=== PATIENT | male | born 1930 | race Caucasian/White ===

== ENCOUNTER 2016-10-10 17:24 | Inpatient (IN) | payer MEDICARE, MEDICAID ==
[~2016-10-10] VITALS: Ht 170.2 cm; Wt 77.1 kg
[2016-10-10 17:28] VITALS: BP 150/65
[2016-10-10 17:47] LABS: BASOPHILS % (AUTO) 0.4 % (0.0-2.0); EOSINOPHILS % (AUTO) 2.7 % (0.0-3.0); LYMPHOCYTES % (AUTO) 32.7 % (20.0-45.0); MEAN CORPUSCULAR HEMOGLOBIN 30.1 PG (27.0-31.0); MEAN CORPUSCULAR HGB CONC 33.9 G/DL (32.0-36.0); MEAN CORPUSCULAR VOLUME 89 FL (80-99); MONOCYTES % (AUTO) 10.3 % (1.0-10.0); NEUTROPHILS % (AUTO) 53.9 % (45.0-75.0); PLATELET COUNT 141 K/UL (150-450); RED BLOOD COUNT 3.84 M/UL (4.70-6.10); WHITE BLOOD COUNT 6.3 K/UL (4.8-10.8)
[2016-10-10 17:57] LABS: ALANINE AMINOTRANSFERASE 5 U/L (3-41); ALBUMIN/GLOBULIN RATIO 2.1 (1.0-2.7); ANION GAP 13 (5-15); ASPARTATE AMINO TRANSFERASE 15 U/L (5-40); CALCIUM 9.4 mg/dL (8.6-10.2); CARBON DIOXIDE 26 mEQ/L (20-30); CHLORIDE 96 mEQ/L (98-107); CREATININE 0.9 mg/dL (0.7-1.2); HEMOLYSIS 8; POTASSIUM 4.4 mEQ/L (3.4-4.9); SODIUM 135 mEQ/L (135-145)
[2016-10-10 17:59] LABS: TROPONIN I < 0.30 ng/mL (<=0.30)
[2016-10-10 18:08] LABS: CKMB 1.9 ng/mL (< 6.7)
[2016-10-10 18:28] LABS: INR 1.1 (0.9-1.1); PROTHROMBIN TIME 11.7 SEC (9.30-11.50)
[2016-10-10] MEDS ORDERED: TAMSULOSIN HCL0.4 MG ORAL (18:59)
[2016-10-10] MEDS ORDERED: BRIMONIDINE TART5 ML BOTH EYES (18:59)
[2016-10-10] MEDS ORDERED: DOCUSATE SODIU100 MG ORAL (18:59)
[2016-10-10] MEDS ORDERED: ASPIRIN81 MG ORAL (18:59)
[2016-10-10] MEDS ORDERED: CRESTOR20 MG ORAL (19:05)
[2016-10-10] MEDS ORDERED: SINEMET 25-1001 EAC1 ORAL (19:05)
[2016-10-10] MEDS ORDERED: HYDRALAZINE HC100 MG ORAL (19:05)
[2016-10-10] MEDS ORDERED: PROTONIX40 MG ORAL (19:05)
[2016-10-10] MEDS ORDERED: ARICEPT5 MG ORAL (19:05)
[2016-10-10] MEDS ORDERED: BRILINTA90 MG PO (19:05)
[2016-10-10] MEDS ORDERED: TRAVATAN Z5 ML OP (19:05)
[2016-10-10 19:29] VITALS: BP 164/70
[2016-10-10 20:40] VITALS: BP 140/72
[2016-10-10] MEDS ORDERED: Morphine Sulfate 2mg/ml Inj IVP PRN (21:45)
[2016-10-10] MEDS ORDERED: Diltiazem 25mg/5ml IV PRN (21:45)
[2016-10-10] MEDS ORDERED: DuoNeb 0.5-3(2.5)mg/3ml neb HHN PRN (21:45)
[2016-10-10] MEDS ORDERED: Miralax 17gm pkt ORAL PRN (21:45)
[2016-10-10] MEDS ORDERED: Ketorolac 30mg Inj IV PRN (21:45)
[2016-10-10] MEDS ORDERED: Nitroglycerin Subl 0.4mg tab (Bottle Of 25) SL PRN (21:45)
--- NOTE | 2016-10-10 22:58 | Emergency Room Report ---
History of Present Illness General Chief Complaint: Chest Pain Source: Patient, EMS Present Illness HPI Patient is a 86-year-old male presented after having increased chest pain from prison. The patient had prior history of cardiac stent. The patient had been sent in from [facility]. He had not been vomiting. The patient had been given aspirin as well as nitroglycerin in the field without changes chest pain. The pain was described as sharp in nature and did not radiate . Allergies: Coded Allergies: No Known Allergies (Verified , 11/07/06) Patient History Past Medical History: see triage record Reviewed Nursing Documentation: PMH: Agreed, PSxH: Agreed Nursing Documentation-PMH Hx Hypertension: Yes Review of Systems All Other Systems: negative except mentioned in HPI Physical Exam Vital Signs Date Time Temp Pulse Resp B/P Pulse Ox O2 Delivery O2 Flow Rate FiO2 10/10/16 17:08 98.2 64 13 119/64 98 Room Air Sp02 EP Interpretation: reviewed, normal General Appearance: normal inspection, well appearing, no apparent distress, alert, GCS 15, non-toxic Head: atraumatic ENT: normal ENT inspection, hearing grossly normal, normal voice Neck: normal inspection, full range of motion, supple, no bony tend Respiratory: normal inspection, lungs clear, normal breath sounds, no respiratory distress, no retraction, no wheezing Cardiovascular #1: regular rate, rhythm, no edema Gastrointestinal: normal inspection, normal bowel sounds, non tender, soft, no guarding, no hernia Genitourinary: no CVA tenderness Musculoskeletal: normal inspection, back normal, normal range of motion Neurologic: normal inspection, alert, oriented x3, responsive, adobe flex developer 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 tested, speech normal Psychiatric: normal inspection, judgement/insight normal, mood/affect normal Skin: normal inspection, normal color, no rash Medical Decision Making Diagnostic Impression: Primary Impression: Chest pain Additional Impression: ACS (acute coronary syndrome) ER Course Patient presented for chest pain.Differential diagnosis included but was not limited to acute coronary syndrome, pulmonary embolism, pneumonia, aortic dissection, shingles, pneumothorax, aortic dissection, esophageal rupture, pericarditis. Because of complexity of patient's case laboratory testing and imaging studies were ordered. EKG interpreted by me showed normal sinus rhythm with a rate of [address] changes. There were some lateral T-wave inversion V5 V6. The patient' s EKG changes are concerning for cardiac ischemia. Patient was admitted for further workup given the patient's prior cardiac history Dr. deng was contacted for inpatient management Labs Test 10/10/16 17:25 10/10/16 17:44 White Blood Count 6.3 K/UL (4.8-10.8) Red Blood Count 3.84 M/UL (4.70-6.10) Hemoglobin 11.6 G/DL (14.2-18.0) Hematocrit 34.2 % (42.0-52.0) Mean Corpuscular Volume 89 FL (80-99) Mean Corpuscular Hemoglobin 30.1 PG (27.0-31.0) Mean Corpuscular Hemoglobin Concent 33.9 G/DL (32.0-36.0) Red Cell Distribution Width 12.0 % (11.6-14.8) Platelet Count 141 K/UL (150-450) Mean Platelet Volume 9.0 FL (6.5-10.1) Neutrophils (%) (Auto) 53.9 % (45.0-75.0) Lymphocytes (%) (Auto) 32.7 % (20.0-45.0) Monocytes (%) (Auto) 10.3 % (1.0-10.0) Eosinophils (%) (Auto) 2.7 % (0.0-3.0) Basophils (%) (Auto) 0.4 % (0.0-2.0) Prothrombin Time 11.7 SEC (9.30-11.50) Prothromb Time International Ratio 1.1 (0.9-1.1) Activated Partial Thromboplast Time 27 SEC (23-33) Sodium Level 135 mEQ/L (135-145) Potassium Level 4.4 mEQ/L (3.4-4.9) Chloride Level 96 mEQ/L (98-107) Carbon Dioxide Level 26 mEQ/L (20-30) Anion Gap 13 (5-15) Blood Urea Nitrogen 19 mg/dL (7-23) Creatinine 0.9 mg/dL (0.7-1.2) Estimat Glomerular Filtration Rate mL/min (>60) Glucose Level 155 mg/dL (74-106) Calcium Level 9.4 mg/dL (8.6-10.2) Total Bilirubin 0.4 mg/dL (0.0-1.2) Aspartate Amino Transf (AST/SGOT) 15 U/L (5-40) Alanine Aminotransferase (ALT/SGPT) 5 U/L (3-41) Alkaline Phosphatase 72 U/L (40-129) Total Creatine Kinase 69 U/L (38-174) Creatine Kinase MB 1.9 ng/mL (< 6.7) Creatine Kinase MB Relative Index 2.7 Troponin I < 0.30 ng/mL (<=0.30) Pro-B-Type Natriuretic Peptide 479 pg/mL (0-450) Total Protein 6.0 g/dL (6.6-8.7) Albumin 4.1 g/dL (3.5-5.2) Globulin 1.9 g/dL Albumin/Globulin Ratio 2.1 (1.0-2.7) Lactic Acid Level 1.00 mmol/L (0.66-2.22) EKG Diagnostic Results Rate: normal Rhythm: NSR ST Segments: no acute changes ASA given to the pt in ED: No Rhythm Strip Diag. Results EP Interpretation: yes Rhythm: NSR, no PVC's, no ectopy Chest X-Ray Diagnostic Results EP Interpretation: Yes Findings: no consolidation, no effusion, no pneumothorax, no acute cardiopulmonary disease Number of Views: 1 Last Vital Signs Date Time Temp Pulse Resp B/P Pulse Ox O2 Delivery O2 Flow Rate FiO2 10/10/16 19:30 98.2 65 12 164/70 100 Room Air Status: unchanged Disposition: ADMITTED INPATIENT Condition: Serious Referrals: NON PHYSICIAN (PCP) James Rubin Oct 10, 2016 22:58
[2016-10-11] VITALS: BP 153/60
[2016-10-11 00:08] LABS: TROPONIN I < 0.30 ng/mL (<=0.30)
[2016-10-11 04:00] VITALS: BP 155/70
[2016-10-11 07:31] LABS: BASOPHILS % (AUTO) 0.8 % (0.0-2.0); LYMPHOCYTES % (AUTO) 27.9 % (20.0-45.0); MEAN CORPUSCULAR HEMOGLOBIN 31.4 PG (27.0-31.0); MEAN CORPUSCULAR HGB CONC 35.6 G/DL (32.0-36.0); MEAN CORPUSCULAR VOLUME 88 FL (80-99); MEAN PLATELET VOLUME 8.2 FL (6.5-10.1); MONOCYTES % (AUTO) 9.1 % (1.0-10.0); NEUTROPHILS % (AUTO) 59.1 % (45.0-75.0); PLATELET COUNT 127 K/UL (150-450); RED BLOOD COUNT 4.01 M/UL (4.70-6.10); RED CELL DISTRIBUTION WIDTH 11.5 % (11.6-14.8); WHITE BLOOD COUNT 5.5 K/UL (4.8-10.8)
[2016-10-11 07:51] LABS: TROPONIN I < 0.30 ng/mL (<=0.30)
[2016-10-11 07:58] LABS: THYROID STIMULATING HORMONE 0.762 uIU/mL (0.300-4.500)
[2016-10-11 08:01] LABS: INR 1.1 (0.9-1.1); PROTHROMBIN TIME 11.6 SEC (9.30-11.50)
[2016-10-11 08:02] LABS: CHOLESTEROL 110 mg/dL (< 200); CHOLESTEROL/HDL RATIO 1.7 (3.3-4.4); CRP QUANT < 0.3 mg/dL (< 0.5); HEMOLYSIS 4; LDL CHOLESTEROL (CALC.) 35 mg/dL (60-99)
[2016-10-11] MEDS: Heparin 5000 units/ml inj SUBQ SCH ×2 (09:00→21:00)
[2016-10-11] MEDS: Tamsulosin 0.4mg cap ORAL SCH (09:21)
[2016-10-11] MEDS: Sinemet 25/100 tab ORAL SCH ×3 (09:21→18:39)
[2016-10-11] MEDS: Donepezil 5mg Tab ORAL SCH (09:28)
[2016-10-11] MEDS: Aspirin Baby 81mg ORAL SCH (09:29)
[2016-10-11 12:02] LABS: TROPONIN I < 0.30 ng/mL (<=0.30)
[2016-10-11 12:55] VITALS: BP 130/87
--- NOTE | 2016-10-11 13:09 | History and Physical ---
History of Present Illness General Date patient seen: Oct 11, 2016 Reason for Hospitalization: Chest Pain Present Illness HPI 86-year-old male with hx of Parkinson, CAD, pace maker, skilled nursing resident presented after having increased chest pain. The patient had prior history of cardiac stent. The patient had been given aspirin as well as nitroglycerin in the field without changes chest pain. The pain was described as sharp in nature and did not radiate . He is admitted telemetry to rule out acute ID among other. Allergies: Coded Allergies: No Known Allergies (Verified , 11/07/06) Medication History Scheduled Aspirin* (Aspirin*), 81 MG ORAL DAILY, (Reported) Brimonidine Tartrate* (Alphagan*), 1 DROP BOTH EYES TID, (Reported) Carbidopa/Levodopa 25-100 Mg* (Sinemet 25-100 Mg Tablet*), 1 TAB ORAL THREE TIMES A DAY, (Reported) Docusate Sodium* (Docusate Sodium*), 100 MG ORAL TWICE A DAY, (Reported) Donepezil Hcl* (Aricept*), 5 MG ORAL DAILY, (Reported) Hydralazine Hcl* (Hydralazine Hcl*), 100 MG ORAL BID, (Reported) Pantoprazole* (Protonix*), 40 MG ORAL DAILY, (Reported) Rosuvastatin Calcium* (Crestor*), 20 MG ORAL DAILY, (Reported) Ticagrelor* (Brilinta*), 90 MG PO BID, (Reported) Miscellaneous Medications Tamsulosin Hcl (Tamsulosin Hcl*), 0.4 MG ORAL, (Reported) Travoprost (Travatan Z), 5 ML OP, (Reported) Patient History Healthcare decision maker Resuscitation status Full Code Advanced Directive on File Yes Past Medical/Surgical History Past Medical/Surgical History: (1) Parkinson disease (2) Pacemaker (3) Hx of CABG Social History Social History: (1) long term resident Review of Systems All Other Systems: negative except mentioned in HPI Physical Exam Lines, tubes and drains: peripheral, trach HEENT: atraumatic Neck: non-tender, normal alignment Respiratory/Chest: chest wall non-tender, lungs clear Cardiovascular/Chest: normal peripheral pulses, normal rate Abdomen: normal bowel sounds, non tender Genitourinary/Rectal: normal genital exam Last 24 Hour Vital Signs Date Time Temp Pulse Resp B/P Pulse Ox O2 Delivery O2 Flow Rate FiO2 10/11/16 08:41 67 18 Room Air 10/11/16 08:00 60 10/11/16 04:00 60 10/11/16 04:00 97.5 53 16 155/70 98 Room Air 10/11/16 00:00 96.8 58 16 153/60 98 Room Air 10/11/16 00:00 58 10/10/16 21:55 84 10/10/16 20:40 97.3 57 14 140/72 98 Room Air 10/10/16 19:30 98.2 65 12 164/70 100 Room Air 10/10/16 19:29 98.2 65 13 164/70 100 Room Air 10/10/16 17:30 65 11 Room Air 10/10/16 17:28 98.2 65 11 150/65 100 Room Air 10/10/16 17:08 98.2 64 13 119/64 98 Room Air Intake and Output 10/10/16 10/11/16 19:00 07:00 Intake Total 0 ml Output Total 800 ml Balance -800 ml Intake Oral 0 ml Output Urine Total 800 ml # Voids 4 Laboratory Tests Test 10/10/16 17:25 10/10/16 17:44 10/10/16 23:40 10/11/16 05:37 White Blood Count 6.3 K/UL (4.8-10.8) 5.5 K/UL (4.8-10.8) Red Blood Count 3.84 M/UL (4.70-6.10) L 4.01 M/UL (4.70-6.10) L Hemoglobin 11.6 G/DL (14.2-18.0) L 12.6 G/DL (14.2-18.0) L Hematocrit 34.2 % (42.0-52.0) L 35.3 % (42.0-52.0) L Mean Corpuscular Volume 89 FL (80-99) 88 FL (80-99) Mean Corpuscular Hemoglobin 30.1 PG (27.0-31.0) 31.4 PG (27.0-31.0) H Mean Corpuscular Hemoglobin Concent 33.9 G/DL (32.0-36.0) 35.6 G/DL (32.0-36.0) Red Cell Distribution Width 12.0 % (11.6-14.8) 11.5 % (11.6-14.8) L Platelet Count 141 K/UL (150-450) L 127 K/UL (150-450) L Mean Platelet Volume 9.0 FL (6.5-10.1) 8.2 FL (6.5-10.1) Neutrophils (%) (Auto) 53.9 % (45.0-75.0) 59.1 % (45.0-75.0) Lymphocytes (%) (Auto) 32.7 % (20.0-45.0) 27.9 % (20.0-45.0) Monocytes (%) (Auto) 10.3 % (1.0-10.0) H 9.1 % (1.0-10.0) Eosinophils (%) (Auto) 2.7 % (0.0-3.0) 3.0 % (0.0-3.0) Basophils (%) (Auto) 0.4 % (0.0-2.0) 0.8 % (0.0-2.0) Prothrombin Time 11.7 SEC (9.30-11.50) H 11.6 SEC (9.30-11.50) H Prothromb Time International Ratio 1.1 (0.9-1.1) 1.1 (0.9-1.1) Activated Partial Thromboplast Time 27 SEC (23-33) 27 SEC (23-33) Sodium Level 135 mEQ/L (135-145) Potassium Level 4.4 mEQ/L (3.4-4.9) Chloride Level 96 mEQ/L (98-107) L Carbon Dioxide Level 26 mEQ/L (20-30) Anion Gap 13 (5-15) Blood Urea Nitrogen 19 mg/dL (7-23) Creatinine 0.9 mg/dL (0.7-1.2) Estimat Glomerular Filtration Rate mL/min (>60) Glucose Level 155 mg/dL (74-106) H Calcium Level 9.4 mg/dL (8.6-10.2) Total Bilirubin 0.4 mg/dL (0.0-1.2) Aspartate Amino Transf (AST/SGOT) 15 U/L (5-40) Alanine Aminotransferase (ALT/SGPT) 5 U/L (3-41) Alkaline Phosphatase 72 U/L (40-129) Total Creatine Kinase 69 U/L (38-174) Creatine Kinase MB 1.9 ng/mL (< 6.7) Creatine Kinase MB Relative Index 2.7 Troponin I < 0.30 ng/mL (<=0.30) < 0.30 ng/mL (<=0.30) < 0.30 ng/mL (<=0.30) Pro-B-Type Natriuretic Peptide 479 pg/mL (0-450) H Total Protein 6.0 g/dL (6.6-8.7) L Albumin 4.1 g/dL (3.5-5.2) Globulin 1.9 g/dL Albumin/Globulin Ratio 2.1 (1.0-2.7) Lactic Acid Level 1.00 mmol/L (0.66-2.22) C-Reactive Protein, Quantitative < 0.3 mg/dL (< 0.5) Triglycerides Level 62 mg/dL (< 150) Cholesterol Level 110 mg/dL (< 200) LDL Cholesterol 35 mg/dL (60-99) L HDL Cholesterol 63 mg/dL (> 60) H Cholesterol/HDL Ratio 1.7 (3.3-4.4) L Thyroid Stimulating Hormone (TSH) 0.762 uIU/mL (0.300-4.500) Test 10/11/16 11:25 Troponin I < 0.30 ng/mL (<=0.30) Height (Feet): 5 Height (Inches): 7.00 Weight (Pounds): 170 Medications Current Medications Medications (Trade) Dose Ordered Sig/Angelito Route PRN Reason Start Time Stop Time Status Last Admin Dose Admin Acetaminophen (Tylenol) 650 mg Q4H PRN ORAL FEVER 10/10/16 21:45 11/09/16 21:44 Albuterol/ Ipratropium (DuoNeb 0.5-3(2.5)mg/3ml) 3 ml Q4H PRN HHN Shortness of Breath 10/10/16 21:45 10/15/16 21:44 Aspirin (ASA) 162 mg DAILY ORAL 10/11/16 09:00 11/10/16 08:59 10/11/16 09:29 Carbidopa/Levodopa (Sinemet 25/100) 1 ea THREE TIMES A DAY ORAL 10/11/16 09:00 11/10/16 08:59 10/11/16 09:28 Diltiazem HCl (Cardizem) 10 mg EVERY HOUR PRN IV heart rate more than 120, 10/10/16 21:45 11/09/16 21:44 Donepezil HCl (Aricept) 5 mg DAILY ORAL 10/11/16 09:00 11/10/16 08:59 10/11/16 09:28 Enalaprilat (Vasotec) 2.5 mg Q6H PRN IV sbp more than 160 10/10/16 21:45 11/09/16 21:44 Heparin Sodium (Porcine) (Heparin 5000 units/ml) 5,000 units EVERY 12 HOURS SUBQ 10/11/16 09:00 11/10/16 08:59 Ketorolac Tromethamine (Toradol 30mg) 30 mg Q6HR PRN IV moderate pain ( 4-6) 10/10/16 21:45 10/15/16 21:44 UNV Morphine Sulfate (Morphine Sulfate) 2 mg Q4H PRN IVP severe Pain (Pain Scale 7-10) 10/10/16 21:45 10/17/16 21:44 Nitroglycerin (Ntg) 0.4 mg Every 5 Minutes PRN SL Prn Chest Pain 10/10/16 21:45 11/09/16 21:44 Ondansetron HCl (Zofran) 4 mg Q6H PRN IVP Nausea & Vomiting 10/10/16 21:45 11/09/16 21:44 Pantoprazole (Protonix) 40 mg DAILY ORAL 10/11/16 09:00 11/10/16 08:59 10/11/16 09:28 Polyethylene Glycol (Miralax) 17 gm DAILYPRN PRN ORAL Constipation 10/10/16 21:45 11/09/16 21:44 Tamsulosin HCl (Flomax) 0.4 mg DAILY ORAL 10/11/16 09:00 11/10/16 08:59 Temazepam (Restoril) 15 mg HSPRN PRN ORAL Insomnia 10/10/16 21:45 10/17/16 21:44 Assessment/Plan Problem List: (1) ACS (acute coronary syndrome) ICD Codes: I24.9 - Acute ischemic heart disease, unspecified SNOMED: 602694790 (2) Costochondritis ICD Codes: M94.0 - Chondrocostal junction syndrome [Tietze] SNOMED: 84320713 (3) GERD (gastroesophageal reflux disease) ICD Codes: K21.9 - Gastro-esophageal reflux disease without esophagitis SNOMED: 041263695 (4) Pacemaker ICD Codes: Z95.0 - Presence of cardiac pacemaker SNOMED: 142642421, 353637076 (5) Parkinson disease ICD Codes: G20 - Parkinson's disease SNOMED: 18700548 (6) Hx of CABG ICD Codes: Z95.1 - Presence of aortocoronary bypass graft SNOMED: 938543276, 129058049 (7) long term resident ICD Codes: Z59.3 - Problems related to living in residential institution SNOMED: 162288151 (8) Chest pain ICD Codes: R07.9 - Chest pain, unspecified SNOMED: 60904080 Assessment/Plan serial ekg, troponin, echo cardiology to see dvt prophylaxis symptomatic treatment WILFRED RAY Oct 11, 2016 13:09
--- NOTE | 2016-10-11 15:40 | Cardiology Progress Note ---
Assessment/Plan Assessment/Plan chest pain cad s/p cabg adn pci to lm with cath 04/2016 neg mds anemia all trop neg desptie 1 hour of cp ekg not changed since multipl devonte r ekg at [facility] as[facility] / bril[place] dc to dc will not pursuit further [id number] Objective Last 24 Hour Vital Signs Date Time Temp Pulse Resp B/P Pulse Ox O2 Delivery O2 Flow Rate FiO2 10/11/16 12:55 98.2 77 18 130/87 97 Room Air 10/11/16 08:41 67 18 Room Air 10/11/16 08:00 60 10/11/16 04:00 60 10/11/16 04:00 97.5 53 16 155/70 98 Room Air 10/11/16 00:00 96.8 58 16 153/60 98 Room Air 10/11/16 00:00 58 10/10/16 21:55 84 10/10/16 20:40 97.3 57 14 140/72 98 Room Air 10/10/16 19:30 98.2 65 12 164/70 100 Room Air 10/10/16 19:29 98.2 65 13 164/70 100 Room Air 10/10/16 17:30 65 11 Room Air 10/10/16 17:28 98.2 65 11 150/65 100 Room Air 10/10/16 17:08 98.2 64 13 119/64 98 Room Air Intake and Output 10/10/16 10/11/16 19:00 07:00 Intake Total 0 ml Output Total 800 ml Balance -800 ml Intake Oral 0 ml Output Urine Total 800 ml # Voids 4 Laboratory Tests Test 10/10/16 17:25 10/10/16 17:44 10/10/16 23:40 10/11/16 05:37 White Blood Count 6.3 K/UL (4.8-10.8) 5.5 K/UL (4.8-10.8) Red Blood Count 3.84 M/UL (4.70-6.10) L 4.01 M/UL (4.70-6.10) L Hemoglobin 11.6 G/DL (14.2-18.0) L 12.6 G/DL (14.2-18.0) L Hematocrit 34.2 % (42.0-52.0) L 35.3 % (42.0-52.0) L Mean Corpuscular Volume 89 FL (80-99) 88 FL (80-99) Mean Corpuscular Hemoglobin 30.1 PG (27.0-31.0) 31.4 PG (27.0-31.0) H Mean Corpuscular Hemoglobin Concent 33.9 G/DL (32.0-36.0) 35.6 G/DL (32.0-36.0) Red Cell Distribution Width 12.0 % (11.6-14.8) 11.5 % (11.6-14.8) L Platelet Count 141 K/UL (150-450) L 127 K/UL (150-450) L Mean Platelet Volume 9.0 FL (6.5-10.1) 8.2 FL (6.5-10.1) Neutrophils (%) (Auto) 53.9 % (45.0-75.0) 59.1 % (45.0-75.0) Lymphocytes (%) (Auto) 32.7 % (20.0-45.0) 27.9 % (20.0-45.0) Monocytes (%) (Auto) 10.3 % (1.0-10.0) H 9.1 % (1.0-10.0) Eosinophils (%) (Auto) 2.7 % (0.0-3.0) 3.0 % (0.0-3.0) Basophils (%) (Auto) 0.4 % (0.0-2.0) 0.8 % (0.0-2.0) Prothrombin Time 11.7 SEC (9.30-11.50) H 11.6 SEC (9.30-11.50) H Prothromb Time International Ratio 1.1 (0.9-1.1) 1.1 (0.9-1.1) Activated Partial Thromboplast Time 27 SEC (23-33) 27 SEC (23-33) Sodium Level 135 mEQ/L (135-145) Potassium Level 4.4 mEQ/L (3.4-4.9) Chloride Level 96 mEQ/L (98-107) L Carbon Dioxide Level 26 mEQ/L (20-30) Anion Gap 13 (5-15) Blood Urea Nitrogen 19 mg/dL (7-23) Creatinine 0.9 mg/dL (0.7-1.2) Estimat Glomerular Filtration Rate mL/min (>60) Glucose Level 155 mg/dL (74-106) H Calcium Level 9.4 mg/dL (8.6-10.2) Total Bilirubin 0.4 mg/dL (0.0-1.2) Aspartate Amino Transf (AST/SGOT) 15 U/L (5-40) Alanine Aminotransferase (ALT/SGPT) 5 U/L (3-41) Alkaline Phosphatase 72 U/L (40-129) Total Creatine Kinase 69 U/L (38-174) Creatine Kinase MB 1.9 ng/mL (< 6.7) Creatine Kinase MB Relative Index 2.7 Troponin I < 0.30 ng/mL (<=0.30) < 0.30 ng/mL (<=0.30) < 0.30 ng/mL (<=0.30) Pro-B-Type Natriuretic Peptide 479 pg/mL (0-450) H Total Protein 6.0 g/dL (6.6-8.7) L Albumin 4.1 g/dL (3.5-5.2) Globulin 1.9 g/dL Albumin/Globulin Ratio 2.1 (1.0-2.7) Lactic Acid Level 1.00 mmol/L (0.66-2.22) C-Reactive Protein, Quantitative < 0.3 mg/dL (< 0.5) Triglycerides Level 62 mg/dL (< 150) Cholesterol Level 110 mg/dL (< 200) LDL Cholesterol 35 mg/dL (60-99) L HDL Cholesterol 63 mg/dL (> 60) H Cholesterol/HDL Ratio 1.7 (3.3-4.4) L Thyroid Stimulating Hormone (TSH) 0.762 uIU/mL (0.300-4.500) Test 10/11/16 11:25 Troponin I < 0.30 ng/mL (<=0.30) ALEXANDER SPENCE Oct 11, 2016 15:40
[2016-10-11 16:00] VITALS: BP 172/68
[2016-10-11 20:00] VITALS: BP 168/65
[2016-10-12] VITALS: BP 176/73
[2016-10-12] MEDS: Enalaprilat 2.5mg/2ml Inj IV PRN ×2 (00:18→17:16)
[2016-10-12 04:00] VITALS: BP 160/70
--- NOTE | 2016-10-12 04:28 | Consultation ---
DATE OF CONSULTATION: 10/11/2016 CARDIOLOGY CONSULTATION REFERRING PHYSICIAN: Brooke Douglas M.D. REASON FOR REFERRAL: Chest pain. HISTORY OF PRESENT ILLNESS: The patient is an elderly male whose information is obtained from the nurse and discussion with the patient as well as review of the [facility] records from his recent hospitalizations and admissions for past 6 or 7 months. The patient tells me that he came in to the hospital emergency room because of pain in the left side of his chest approximately one hour duration. He has had similar episodes a few months ago and he was admitted to [facility] and he had a workup including a cath that did not show any significant coronary disease causing chest pain and he was subsequently discharged to convalescent facility. He has had apparently a recent ER visit because of the pain that he experienced and was subsequently evaluated in to the emergency room and sent back to the convalescent facility. He is not able to identify what type of pain that he has experienced, only that it lasted approximately one hour. There was apparently no radiation of the pain and was similar to what he had six months ago. He does not have any PND or orthopnea. He uses 3 or 4 pillows just for comfort. He does not have any heart pounding or palpitations except for rare occasions and no dizziness or lightheadedness on standing. He is mostly bedbound. PAST MEDICAL HISTORY: Positive for history of recent fall mechanical in 09/2016. He has had a CT scan of the head and C-spine and it was apparently negative. 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 Davidson indicating a dominant left system patent stent, left main to LAD, no in-stent stenosis, GENIE 3 flow LAD, patent stents, circumflex artery, patent graft to OM and it was their opinion that there was no coronary disease to explain the patient's atypical chest pain and alternate causes of the patient's atypical chest pain was to be sought. He also has a history of sick sinus syndrome status post permanent pacemaker implantation, thoracic aortic calcification, hypertension, dementia with behavioral manifestations and Parkinson disease, bipolar disorder, right parieto-occipital intraparenchymal hemorrhage with intraventricular extension, small subarachnoid hemorrhage, previously benign prostatic hypertrophy, mild dysplastic syndrome, chronic anemia, gastroesophageal reflux disease, glaucoma, seborrheic dermatitis, and constipation chronically. BOWEN to LAD showed no flow to the wales LAD system, saphenous vein graft to obtuse marginal was free of significant stenosis, good anterograde and retrograde flow, and saphenous vein graft to RCA was basically all normal. ALLERGIES: He denies any allergies to medications. SOCIAL HISTORY: He used to smoke remotely many years ago, none recently. No alcoholic beverages. He lives at convalescent facility. REVIEW OF SYSTEMS: Gastrointestinal: Positive constipation. Genitourinary: Negative. Pulmonary: Negative. Constitutional: Negative. Cardiac: As mentioned in the history of present illness. Neurologic: Negative. PHYSICAL EXAMINATION: GENERAL: Shows him to be an elderly gentleman, in no apparent respiratory distress. HEENT: Unremarkable. NECK: Supple. No jugular venous distention. No abdominojugular reflux noted. LUNGS: Appear to be clear to auscultation and percussion. CARDIAC: S1 is normal. S2 is normal. Regular rate and rhythm. No heaves, thrills, or gallops noted. ABDOMEN: Soft and nontender. Positive bowel sounds. EXTREMITIES: No clubbing, cyanosis, or edema. NEUROLOGICAL: He is awake, alert, responsive, in no apparent respiratory distress. LABORATORY DATA: His white count of 5.5, hemoglobin 12.6, and platelet count of 127,000. His cardiac enzymes are negative. His cholesterol 110 with a LDL of 35 and HDL of 63. TSH is 0.76. Sodium 135, potassium 4.4, chloride 96, bicarbonate 26, BUN 19, creatinine 0.5, and glucose of 115. The proBNP is 479. His INR was 1.1 and PTT of 27. His electrocardiogram basically shows what appears to be sinus with some widening of the QRS complexes compared to prior EKG with T-wave inversions in V5 and V6 and appears to be somewhat different from the prior EKGs in terms of the duration of the QRS complexes and the T-wave inversions. ASSESSMENT: 1. Atypical chest pain with relatively negative cardiac catheterization in 04/2016. 2. Electrocardiographic abnormalities that may be partially related to pacing. 3. History of coronary disease status post PCI to left main with patent graft, except for BOWEN to LAD in 04/2016. 4. Myelodysplastic syndrome. 5. History of intraparenchymal hemorrhage in 2014. 6. Parkinson's disorder. PLAN: Dr. Douglas, this patient was seen in cardiac consultation. The patient's pain from yesterday appears to be atypical, however, he does have some changes in his electrocardiogram with QRS widening, which although not present on his last EKG has been present on his prior EKGs from [facility] review. In light of the fact that the patient's chest pain, there are no abnormalities on his cardiac enzymes and the fact that he had a cardiac catheterization approximately six months ago, I feel no reason to pursue any further. It is of note that his cardiac enzymes were not normal during his hospitalization in 03/2016 at [facility], which led to the eventual catheterization, which did not show any significant intervenable disease. I see no indication to perform any other testing, however, I would recommend an echocardiogram to make sure that the LV function is normal. Of note, he did have a stress test at [facility] in 03/2016 as well, which led to the cardiac catheterization that was indicating a 50% reversibility that turned out to be a false positive test and therefore in light of the fact that he no longer has any pain, I do not feel that it is necessary to pursue any further. Te Harp M.D. DR: ANAYELI JOB#: [id number] CC:
[2016-10-12 08:41] VITALS: BP 176/80
[2016-10-12] MEDS: Heparin 5000 units/ml inj SUBQ SCH (09:00)
[2016-10-12] MEDS: Donepezil 5mg Tab ORAL SCH (09:12)
[2016-10-12] MEDS: Sinemet 25/100 tab ORAL SCH ×2 (09:14→13:16)
[2016-10-12] MEDS: Tamsulosin 0.4mg cap ORAL SCH (09:15)
[2016-10-12] MEDS: Aspirin Baby 81mg ORAL SCH (09:16)
[2016-10-12 12:10] VITALS: BP 158/63
--- NOTE | 2016-10-12 14:55 | Pulmonology Progress Note ---
Assessment/Plan Problems: (1) ACS (acute coronary syndrome) (2) Costochondritis (3) GERD (gastroesophageal reflux disease) (4) Pacemaker (5) Parkinson disease (6) Hx of CABG (7) skilled nursing resident (8) Chest pain Assessment/Plan ND ruled out cardiology evaluation appreciated pain is controlled dc to longterm Subjective ROS Limited/Unobtainable: No Constitutional: Reports: no symptoms HEENT: Repors: no symptoms Respiratory: Reports: no symptoms Allergies: Coded Allergies: No Known Allergies (Verified , 11/07/06) Objective Last 24 Hour Vital Signs Date Time Temp Pulse Resp B/P Pulse Ox O2 Delivery O2 Flow Rate FiO2 10/12/16 12:10 98.1 51 18 158/63 97 Room Air 10/12/16 08:41 97.5 69 20 176/80 97 Room Air 10/12/16 07:53 51 18 Room Air 21 10/12/16 07:47 61 10/12/16 04:00 97.5 56 16 160/70 94 Room Air 10/12/16 04:00 57 10/12/16 00:18 176/73 10/12/16 00:00 98.1 60 16 176/73 95 Room Air 10/12/16 00:00 60 10/11/16 20:00 95.5 56 20 168/65 96 Room Air 10/11/16 20:00 51 10/11/16 19:40 80 20 Room Air 21 10/11/16 16:00 97.2 87 19 172/68 96 10/11/16 16:00 61 Intake and Output 10/11/16 10/12/16 19:00 07:00 Intake Total 325 ml 240 ml Output Total 250 ml Balance 75 ml 240 ml Intake Oral 325 ml 240 ml Output Urine Total 250 ml # Voids 4 3 # Bowel Movements 1 General Appearance: WD/WN HEENT: normocephalic, atraumatic Respiratory/Chest: chest wall non-tender, lungs clear Cardiovascular: normal peripheral pulses, normal rate Abdomen: normal bowel sounds, soft, non tender Genitourinary: normal external genitalia Skin: no lesions 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 Complete Current Medications Medications (Trade) Dose Ordered Sig/Angelito Route PRN Reason Start Time Stop Time Status Last Admin Dose Admin Acetaminophen (Tylenol) 650 mg Q4H PRN ORAL FEVER 10/10/16 21:45 11/09/16 21:44 Albuterol/ Ipratropium (DuoNeb 0.5-3(2.5)mg/3ml) 3 ml Q4H PRN HHN Shortness of Breath 10/10/16 21:45 10/15/16 21:44 Aspirin (ASA) 162 mg DAILY ORAL 10/11/16 09:00 11/10/16 08:59 10/12/16 09:16 Carbidopa/Levodopa (Sinemet 25/100) 1 ea THREE TIMES A DAY ORAL 10/11/16 09:00 11/10/16 08:59 10/12/16 13:16 Diltiazem HCl (Cardizem) 10 mg EVERY HOUR PRN IV heart rate more than 120, 10/10/16 21:45 11/09/16 21:44 Donepezil HCl (Aricept) 5 mg DAILY ORAL 10/11/16 09:00 11/10/16 08:59 10/12/16 09:12 Enalaprilat (Vasotec) 2.5 mg Q6H PRN IV sbp more than 160 10/10/16 21:45 11/09/16 21:44 10/12/16 00:18 Heparin Sodium (Porcine) (Heparin 5000 units/ml) 5,000 units EVERY 12 HOURS SUBQ 10/11/16 09:00 11/10/16 08:59 Ketorolac Tromethamine (Toradol 30mg) 30 mg Q6H PRN IV moderate pain ( 4-6) 10/10/16 21:45 10/15/16 21:44 Morphine Sulfate (Morphine Sulfate) 2 mg Q4H PRN IVP severe Pain (Pain Scale 7-10) 10/10/16 21:45 10/17/16 21:44 Nitroglycerin (Ntg) 0.4 mg Every 5 Minutes PRN SL Prn Chest Pain 10/10/16 21:45 11/09/16 21:44 Ondansetron HCl (Zofran) 4 mg Q6H PRN IVP Nausea & Vomiting 10/10/16 21:45 11/09/16 21:44 Pantoprazole (Protonix) 40 mg DAILY ORAL 10/11/16 09:00 11/10/16 08:59 10/12/16 09:14 Polyethylene Glycol (Miralax) 17 gm DAILYPRN PRN ORAL Constipation 10/10/16 21:45 11/09/16 21:44 Tamsulosin HCl (Flomax) 0.4 mg DAILY ORAL 10/11/16 09:00 11/10/16 08:59 10/12/16 09:15 Temazepam (Restoril) 15 mg HSPRN PRN ORAL Insomnia 10/10/16 21:45 10/17/16 21:44 WILFRED RAY Oct 12, 2016 14:55
[2016-10-12 16:00] VITALS: BP 180/79
[2016-10-12 17:16] VITALS: BP 180/79
--- NOTE | 2016-10-13 08:02 | Cardiology Report ---
APPROVED REPORT EXAM: Two-dimensional and M-mode echocardiogram with Doppler and color Doppler. INDICATION Left ventricular function Normal left ventricular chamber size, systolic function and wall motion. Left ventricular ejection fraction estimated to be 60-65 %. Moderate left ventricular hypertrophy. No evidence of pericardial fat or effusion. Moderate left atrial enlargement by 2D. Mild right atrial enlargement by 2D. Focal aortic valve sclerosis with adequate cusp excursion Thickened mitral valve leaflets with normal excursion. Mild mitral annulus and aortic root calcification. Pulmonic valve not well visualized. Normal tricuspid valve structure. IVC is normal in size with physiologic collapse. Probable pacemaker wire present in the right side chambers. A color flow and spectral Doppler study was performed and revealed: No aortic regurgitation. Trace mitral regurgitation. Left ventricular diastolic dysfunction grade 1. Trace tricuspid regurgitation. Tricuspid systolic velocities suggests peak right ventricular systolic pressure of 25 mmHg
--- NOTE | 2016-10-14 09:34 | Discharge Summary ---
Discharge Summary Hospital Course Date of Admission Oct 10, 2016 at 18:40 Date of Discharge Oct 12, 2016 at 17:50 Admitting Diagnosis chest pain, Acute Coronary Syndrome HPI Man Elizabeth is a 86 year old male who was admitted on Oct 10, 2016 at 18:40 for Chest Pain, Acute Coronary Syndrome Hospital Course [id number] Discharge Discharge Disposition Patient was discharged to SNF/Subacute Facility(03) Discharge Diagnoses: Brinda Hdz NP Oct 14, 2016 09:34
--- NOTE | 2016-10-14 23:58 | Discharge Summary 2 SIG ---
DATE OF ADMISSION: 10/10/2016 DATE OF DISCHARGE: 10/12/2016 STUDENT AFFAIRS DEAN: Te Harp M.D. BRIEF HOSPITAL COURSE: The patient is an 86-year-old male with history of Parkinson disease, coronary artery disease, and pacemaker, presented to ED after increased chest pain and had a prior history of cardiac stent. He was given aspirin and nitroglycerin in the field without relief and was admitted to telemetry for cardiac monitoring. Dr. Harp was consulted. His cardiac enzymes were negative. The electrocardiogram showed sinus with some widening of QRS complexes compared to prior EKG with T-wave inversion in V5 and V6 and appeared to be somewhat different from the prior EKG in terms of duration of the QRS complex and T-wave inversions. He has a history of coronary artery disease status post PCI to the left main with patent grafts except for a BOWEN to LAD in 04/2016. Prior EKGs from [facility] was reviewed and in light of the fact that no abnormalities on his cardiac enzymes and had a cardiac catheterization approximately 6 months ago and had a recent stress test at [facility] in 03/2016, which led to a cardiac catheterization that was indicating a 50% reversibility that turned out to be a false positive test, and the patient no longer presenting with any chest pain, no necessary interventions needed. An echocardiogram was done showed ejection fraction of 60% to 65%. He was eventually discharged back to [facility]. FINAL DIAGNOSES: 1. Atypical chest pain with a relatively negative cardiac catheterization in 04/2016. 2. Electrocardiographic abnormalities partially related to pacing. 3. Coronary artery disease status post percutaneous coronary intervention to the left main artery. 4. Myelodysplastic syndrome. 5. History of intraparenchymal hemorrhage in 2014. 6. Parkinson's disorder. 7. Costochondritis. 8. Gastroesophageal reflux disease. 9. Pacemaker. 10. residential resident. Brooke Douglas M.D. I have been assigned to dictate discharge summary on this account and I was not involved in the patient's management. Brinda Hdz N.P. DR: TRISHA JOB#: [id number] CC: AIXA
--- NOTE | 2016-10-17 10:30 | Diagnostic Imaging Report ---
Indication: SOB Technique: One view of the chest Comparison: 11/06/2006 Findings: Less optimal inspiration currently. Lungs and pleural spaces remain clear. Left chest pacemaker is again demonstrated. Prior CABG Impression: No acute process. Findings as noted
--- NOTE | 2016-10-17 10:31 | Cardiology Report ---
APPROVED REPORT EKG Measurement Heart [id number] Sinus rhythm with sinus arrhythmia with 1st degree AV block Left axis deviation Left ventricular hypertrophy with QRS widening and repolarization abnormality Abnormal ECG
[2016-10-27] MEDS ORDERED: METOPROLOL TART25 MG ORAL (09:25)
== END 2016-10-12 17:50 | DRG 206 ==
LOC: ENRESERVTM → ENRESERVDT → EDBD 17:24 → EMR 18:35 → 2E 18:40 → EDBEDREQ 19:17
DX: M94.0 Chondrocostal junction syndrome [Tietze] (principal); G20 Parkinson's disease; N18.3 Chronic kidney disease, stage 3 (moderate); Z95.1 Presence of aortocoronary bypass graft; K21.9 Gastro-esophageal reflux disease without esophagitis; Z95.0 Presence of cardiac pacemaker; D46.9 Myelodysplastic syndrome, unspecified; R07.89 Other chest pain; I25.10 Atherosclerotic heart disease of native coronary artery without angina pectoris; Z95.5 Presence of coronary angioplasty implant and graft; I69.10 Unspecified sequelae of nontraumatic intracerebral hemorrhage; F31.9 Bipolar disorder, unspecified; H40.9 Unspecified glaucoma
CPT/HCPCS: 36415; 71010; 80053; 80061; 82550; 82553; 83605; 83880; 84443; 84484; 85025; 85610; 85730; 86140; 87081; 93005; 93306; 94664

== ENCOUNTER 2016-10-23 19:52 | Inpatient (IN) | payer MEDICARE, MEDICAID ==
[~2016-10-23] VITALS: Ht 167.6 cm; Wt 65.8 kg
[~2016-10-23 19:52] MED LIST: ARICEPT5 MG ORAL; ASPIRIN81 MG ORAL; BRILINTA90 MG PO; BRIMONIDINE TART5 ML BOTH EYES; CRESTOR20 MG ORAL; DOCUSATE SODIU100 MG ORAL; HYDRALAZINE HC100 MG ORAL; PROTONIX40 MG ORAL; SINEMET 25-1001 EAC1 ORAL; TAMSULOSIN HCL0.4 MG ORAL; TRAVATAN Z5 ML OP
[2016-10-23 19:55] VITALS: BP 137/65
[2016-10-23 20:07] LABS: BASOPHILS % (AUTO) 0.8 % (0.0-2.0); EOSINOPHILS % (AUTO) 2.4 % (0.0-3.0); LYMPHOCYTES % (AUTO) 35.5 % (20.0-45.0); MEAN CORPUSCULAR HEMOGLOBIN 29.5 PG (27.0-31.0); MEAN CORPUSCULAR VOLUME 89 FL (80-99); MEAN PLATELET VOLUME 8.1 FL (6.5-10.1); MONOCYTES % (AUTO) 9.9 % (1.0-10.0); NEUTROPHILS % (AUTO) 51.4 % (45.0-75.0); PLATELET COUNT 156 K/UL (150-450); RED BLOOD COUNT 4.27 M/UL (4.70-6.10); RED CELL DISTRIBUTION WIDTH 12.3 % (11.6-14.8); WHITE BLOOD COUNT 6.4 K/UL (4.8-10.8)
[2016-10-23 20:22] LABS: INR 1.1 (0.9-1.1)
[2016-10-23 20:24] LABS: ALANINE AMINOTRANSFERASE 9 U/L (3-41); ALBUMIN/GLOBULIN RATIO 1.9 (1.0-2.7); ASPARTATE AMINO TRANSFERASE 16 U/L (5-40); CALCIUM 9.4 mg/dL (8.6-10.2); CHLORIDE 96 mEQ/L (98-107); CREATININE 0.8 mg/dL (0.7-1.2); HEMOLYSIS 8; POTASSIUM 4.3 mEQ/L (3.4-4.9); SODIUM 136 mEQ/L (135-145); TOTAL PROTEIN 6.4 g/dL (6.6-8.7); TROPONIN I < 0.30 ng/mL (<=0.30)
--- NOTE | 2016-10-23 20:27 | Emergency Room Report ---
History of Present Illness General Chief Complaint: Chest Pain Present Illness HPI Patient present with complaints of chest pain Midsternal Onset was 2 hours prior to arrival Pain is 6/10 Denies any radiation As he changes position Denies any exertional dyspnea Denies any fevers or chills Patient has had previous open heart surgery At this time reports improved sensation since arrival Allergies: Coded Allergies: No Known Allergies (Verified , 11/07/06) Patient History Past Medical History: see triage record Pertinent Family History: none Reviewed Nursing Documentation: PMH: Agreed, PSxH: Agreed Nursing Documentation-PMH Hx Cardiac Problems: Yes - CAD Hx Hypertension: Yes History Of Psychiatric Problem: Yes - dementia, Parkinson's Ds., Review of Systems All Other Systems: negative except mentioned in HPI Physical Exam Vital Signs Date Time Temp Pulse Resp B/P Pulse Ox O2 Delivery O2 Flow Rate FiO2 10/23/16 19:39 88 18 163/68 97 Room Air 10/23/16 19:55 97.9 Sp02 EP Interpretation: reviewed, normal General Appearance: well appearing, no apparent distress Head: normocephalic, atraumatic Eyes: bilateral eye EOMI, bilateral eye PERRL ENT: hearing grossly normal, normal pharynx, TMs + canals normal, uvula midline Neck: full range of motion, supple, no meningismus, no bony tend Respiratory: lungs clear, normal breath sounds, no rhonchi, no respiratory distress, no retraction, no accessory muscle use Cardiovascular #1: normal peripheral pulses, regular rate, rhythm, no edema, no gallop, no JVD, no murmur Gastrointestinal: normal bowel sounds, non tender, soft, no mass, no organomegaly, non-distended, no guarding, no hernia, no pulsatile mass, no rebound Genitourinary: no CVA tenderness Musculoskeletal: normal inspection Neurologic: oriented x3, responsive, 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 tested, motor strength/ tone normal, sensory intact Psychiatric: mood/affect normal Skin: normal color, no rash, warm/dry, palpation normal Lymphatic: normal inspection, no adenopathy Medical Decision Making Diagnostic Impression: Primary Impression: ACS (acute coronary syndrome) ER Course Patient is a fairly complex patient with multiple differential to consideration including but not limited to cardiac cardiopulmonary and vascular emergencies Patient received aspirin and nitroglycerin Has been pain free at this time Blood work is at baseline levels Patient's x-ray shows cardiomegaly no other acute disease The patient is admitted for further care Labs Test 10/23/16 19:53 White Blood Count 6.4 K/UL (4.8-10.8) Red Blood Count 4.27 M/UL (4.70-6.10) Hemoglobin 12.6 G/DL (14.2-18.0) Hematocrit 38.2 % (42.0-52.0) Mean Corpuscular Volume 89 FL (80-99) Mean Corpuscular Hemoglobin 29.5 PG (27.0-31.0) Mean Corpuscular Hemoglobin Concent 33.0 G/DL (32.0-36.0) Red Cell Distribution Width 12.3 % (11.6-14.8) Platelet Count 156 K/UL (150-450) Mean Platelet Volume 8.1 FL (6.5-10.1) Neutrophils (%) (Auto) 51.4 % (45.0-75.0) Lymphocytes (%) (Auto) 35.5 % (20.0-45.0) Monocytes (%) (Auto) 9.9 % (1.0-10.0) Eosinophils (%) (Auto) 2.4 % (0.0-3.0) Basophils (%) (Auto) 0.8 % (0.0-2.0) Prothrombin Time 11.0 SEC (9.30-11.50) Prothromb Time International Ratio 1.1 (0.9-1.1) Activated Partial Thromboplast Time 25 SEC (23-33) Sodium Level 136 mEQ/L (135-145) Potassium Level 4.3 mEQ/L (3.4-4.9) Chloride Level 96 mEQ/L (98-107) Carbon Dioxide Level 26 mEQ/L (20-30) Anion Gap 14 (5-15) Blood Urea Nitrogen 15 mg/dL (7-23) Creatinine 0.8 mg/dL (0.7-1.2) Estimat Glomerular Filtration Rate mL/min (>60) Glucose Level 131 mg/dL (74-106) Calcium Level 9.4 mg/dL (8.6-10.2) Total Bilirubin 0.4 mg/dL (0.0-1.2) Aspartate Amino Transf (AST/SGOT) 16 U/L (5-40) Alanine Aminotransferase (ALT/SGPT) 9 U/L (3-41) Alkaline Phosphatase 76 U/L (40-129) Total Creatine Kinase 58 U/L (38-174) Creatine Kinase MB 2.0 ng/mL (< 6.7) Creatine Kinase MB Relative Index 3.4 Troponin I < 0.30 ng/mL (<=0.30) Pro-B-Type Natriuretic Peptide 345 pg/mL (0-450) Total Protein 6.4 g/dL (6.6-8.7) Albumin 4.2 g/dL (3.5-5.2) Globulin 2.2 g/dL Albumin/Globulin Ratio 1.9 (1.0-2.7) EKG Diagnostic Results Rate: normal Rhythm: NSR ST Segments: other - Left bundle branch block Rhythm Strip Diag. Results EP Interpretation: yes Rate: 74 Rhythm: NSR, no PVC's, no ectopy Chest X-Ray Diagnostic Results EP Interpretation: Yes Findings: no consolidation, no effusion, no pneumothorax, other - cardiomegaly Number of Views: 1 Last Vital Signs Date Time Temp Pulse Resp B/P Pulse Ox O2 Delivery O2 Flow Rate FiO2 10/23/16 19:57 60 22 Room Air 10/23/16 19:55 97.9 137/65 99 Status: improved Disposition: ADMITTED INPATIENT Condition: Serious Referrals: NOT CHOSEN [place]/,REFERRING (PCP) OUSMANE RODRIGEZ D.O. Oct 23, 2016 20:27
[2016-10-23 20:45] LABS: ANION GAP 14 (5-15); CARBON DIOXIDE 26 mEQ/L (20-30)
[2016-10-23 21:30] VITALS: BP 157/108
[2016-10-23] MEDS ORDERED: Enalaprilat 2.5mg/2ml Inj IV PRN (22:00)
[2016-10-23] MEDS ORDERED: Morphine Sulfate 2mg/ml Inj IVP PRN (22:00)
[2016-10-23] MEDS ORDERED: DuoNeb 0.5-3(2.5)mg/3ml neb HHN PRN (22:00)
[2016-10-23] MEDS ORDERED: Diltiazem 25mg/5ml IV PRN (22:00)
[2016-10-23] MEDS ORDERED: Miralax 17gm pkt ORAL PRN (22:00)
[2016-10-23] MEDS ORDERED: Ketorolac 30mg Inj IV PRN (22:00)
[2016-10-23] MEDS: HydrALAZINE 50mg tab ORAL SCH (22:36)
[2016-10-24] VITALS (7 sets, daily range): BP systolic 113–165; BP diastolic 49–94
[2016-10-24] MEDS: HydrALAZINE 50mg tab ORAL SCH ×3 (06:06→21:43)
[2016-10-24 07:37] LABS: BASOPHILS % (AUTO) 0.6 % (0.0-2.0); EOSINOPHILS % (AUTO) 2.9 % (0.0-3.0); LYMPHOCYTES % (AUTO) 32.1 % (20.0-45.0); MEAN CORPUSCULAR HEMOGLOBIN 30.2 PG (27.0-31.0); MEAN CORPUSCULAR HGB CONC 34.6 G/DL (32.0-36.0); MEAN CORPUSCULAR VOLUME 87 FL (80-99); MEAN PLATELET VOLUME 9.6 FL (6.5-10.1); MONOCYTES % (AUTO) 9.4 % (1.0-10.0); NEUTROPHILS % (AUTO) 55.1 % (45.0-75.0); PLATELET COUNT 138 K/UL (150-450); RED CELL DISTRIBUTION WIDTH 12.4 % (11.6-14.8); WHITE BLOOD COUNT 5.6 K/UL (4.8-10.8)
[2016-10-24 07:55] LABS: TROPONIN I < 0.30 ng/mL (<=0.30)
[2016-10-24 08:18] LABS: THYROID STIMULATING HORMONE 0.948 uIU/mL (0.300-4.500)
[2016-10-24 08:30] LABS: CHOLESTEROL 109 mg/dL (< 200); CHOLESTEROL/HDL RATIO 1.7 (3.3-4.4); CRP QUANT < 0.3 mg/dL (< 0.5); HEMOLYSIS 3; LDL CHOLESTEROL (CALC.) 32 mg/dL (60-99)
[2016-10-24 08:42] LABS: INR 1.1 (0.9-1.1); PROTHROMBIN TIME 11.4 SEC (9.30-11.50)
--- NOTE | 2016-10-24 08:57 | Diagnostic Imaging Report ---
Indications: Chest pain Technique: Portable AP chest Findings: Comparison: 10/10/2016 Cardiac silhouette remains normal in size. Pulmonary vasculature remains within normal limits. Inspiratory effort has improved. Lungs and pleura remain clear. Mild calcification of the aortic arch, sternal wires, left chest wall pacemaker all again noted. IMPRESSION: No evidence of acute disease, unchanged Stable chronic changes as described
[2016-10-24] MEDS ORDERED: Aspirin Baby 81mg ORAL SCH (09:00)
[2016-10-24] MEDS: Brimonidine 0.2% Opth Sol BOTH EYES SCH ×3 (09:44→18:05)
[2016-10-24] MEDS: Sinemet 25/100 tab ORAL SCH ×3 (09:45→18:05)
[2016-10-24] MEDS: Tamsulosin 0.4mg cap ORAL SCH (09:45)
[2016-10-24] MEDS: Donepezil 5mg Tab ORAL SCH (09:45)
[2016-10-24] MEDS: Heparin 5000 units/ml inj SUBQ SCH ×2 (09:47→21:44)
[2016-10-24] MEDS: Nitroglycerin Subl 0.4mg tab (Bottle Of 25) SL PRN ×3 (10:33→10:57)
--- NOTE | 2016-10-24 12:51 | History and Physical ---
History of Present Illness General Date patient seen: Oct 24, 2016 Reason for Hospitalization: Chest Pain Present Illness HPI The patient is an 86-year-old man with a history of hypertension, remote history of tobacco use, coronary artery disease, coronary artery bypass graft surgery in 1995 ([facility]) and status post PCI to the left main and proximal left anterior descending in March 2016 ([facility]). The patient is presenting to [facility] ED with chief complaint of chest pain. He reports development of substernal chest pain, which he states is "heart pain." He was given sublingual nitroglycerin with some improvement in his symptoms and brought to the emergency room. He is currently chest pain free. He was recently hospitalized on 10/10/2016 with similar symptoms. He has been residing at [facility]. He was transferred from the facility with complaint of chest pain. O2 therapy and nitroglycerine have been initiated. Cardiology consultation also requested on STAT basis. Allergies: Coded Allergies: No Known Allergies (Verified , 11/07/06) Medication History Scheduled Aspirin* (Aspirin*), 81 MG ORAL DAILY, (Reported) Brimonidine Tartrate* (Alphagan*), 1 DROP BOTH EYES TID, (Reported) Carbidopa/Levodopa 25-100 Mg* (Sinemet 25-100 Mg Tablet*), 1 TAB ORAL THREE TIMES A DAY, (Reported) Docusate Sodium* (Docusate Sodium*), 100 MG ORAL TWICE A DAY, (Reported) Donepezil Hcl* (Aricept*), 5 MG ORAL DAILY, (Reported) Hydralazine Hcl* (Hydralazine Hcl*), 100 MG ORAL BID, (Reported) Pantoprazole* (Protonix*), 40 MG ORAL DAILY, (Reported) Rosuvastatin Calcium* (Crestor*), 20 MG ORAL DAILY, (Reported) Ticagrelor* (Brilinta*), 90 MG PO BID, (Reported) Miscellaneous Medications Tamsulosin Hcl (Tamsulosin Hcl*), 0.4 MG ORAL, (Reported) Travoprost (Travatan Z), 5 ML OP, (Reported) Patient History Healthcare decision maker Resuscitation status Full Code Advanced Directive on File Review of Systems Cardiovascular: Reports: chest pain, palpitations, see HPI Physical Exam General Appearance: no apparent distress, confused Lines, tubes and drains: peripheral HEENT: normocephalic, atraumatic, PERRL Neck: non-tender, normal alignment Respiratory/Chest: chest wall non-tender, lungs clear, normal breath sounds Breasts: no masses Cardiovascular/Chest: normal peripheral pulses, normal rate, regular rhythm, no JVD Abdomen: normal bowel sounds, non tender, soft, no organomegaly Genitourinary/Rectal: normal genital exam, normal rectal exam Extremities: normal range of motion, non-tender Skin Exam: normal pigmentation, warm/dry Neurologic: presentation specialist II-XII grossly normal, no motor/sensory deficits Last 24 Hour Vital Signs Date Time Temp Pulse Resp B/P Pulse Ox O2 Delivery O2 Flow Rate FiO2 10/24/16 12:02 98.1 66 20 113/49 96 Room Air 10/24/16 12:00 57 10/24/16 10:57 117/57 10/24/16 10:44 118/62 10/24/16 10:33 144/76 10/24/16 08:00 66 10/24/16 08:00 98.2 67 20 158/89 95 Room Air 10/24/16 08:00 98.2 10/24/16 07:55 68 18 Room Air 10/24/16 06:06 140/90 10/24/16 04:16 98.8 72 20 139/94 97 Room Air 10/24/16 04:00 58 10/24/16 00:26 97.5 68 21 154/69 94 Room Air 10/24/16 00:00 56 10/23/16 22:36 157/108 10/23/16 22:30 60 18 Room Air 10/23/16 21:30 97.3 57 22 157/108 98 Room Air 10/23/16 20:57 97.9 60 22 137/65 99 Room Air 10/23/16 19:57 60 22 Room Air 10/23/16 19:55 97.9 60 22 137/65 99 Room Air 10/23/16 19:39 88 18 163/68 97 Room Air Intake and Output 10/23/16 10/24/16 19:00 07:00 Intake Total 0 ml Balance 0 ml Intake Oral 0 ml # Voids 2 # Bowel Movements 1 Laboratory Tests Test 10/23/16 19:53 10/24/16 06:30 White Blood Count 6.4 K/UL (4.8-10.8) 5.6 K/UL (4.8-10.8) Red Blood Count 4.27 M/UL (4.70-6.10) L 4.00 M/UL (4.70-6.10) L Hemoglobin 12.6 G/DL (14.2-18.0) L 12.1 G/DL (14.2-18.0) L Hematocrit 38.2 % (42.0-52.0) L 34.9 % (42.0-52.0) L Mean Corpuscular Volume 89 FL (80-99) 87 FL (80-99) Mean Corpuscular Hemoglobin 29.5 PG (27.0-31.0) 30.2 PG (27.0-31.0) Mean Corpuscular Hemoglobin Concent 33.0 G/DL (32.0-36.0) 34.6 G/DL (32.0-36.0) Red Cell Distribution Width 12.3 % (11.6-14.8) 12.4 % (11.6-14.8) Platelet Count 156 K/UL (150-450) 138 K/UL (150-450) L Mean Platelet Volume 8.1 FL (6.5-10.1) 9.6 FL (6.5-10.1) Neutrophils (%) (Auto) 51.4 % (45.0-75.0) 55.1 % (45.0-75.0) Lymphocytes (%) (Auto) 35.5 % (20.0-45.0) 32.1 % (20.0-45.0) Monocytes (%) (Auto) 9.9 % (1.0-10.0) 9.4 % (1.0-10.0) Eosinophils (%) (Auto) 2.4 % (0.0-3.0) 2.9 % (0.0-3.0) Basophils (%) (Auto) 0.8 % (0.0-2.0) 0.6 % (0.0-2.0) Prothrombin Time 11.0 SEC (9.30-11.50) 11.4 SEC (9.30-11.50) Prothromb Time International Ratio 1.1 (0.9-1.1) 1.1 (0.9-1.1) Activated Partial Thromboplast Time 25 SEC (23-33) 26 SEC (23-33) Sodium Level 136 mEQ/L (135-145) Potassium Level 4.3 mEQ/L (3.4-4.9) Chloride Level 96 mEQ/L (98-107) L Carbon Dioxide Level 26 mEQ/L (20-30) Anion Gap 14 (5-15) Blood Urea Nitrogen 15 mg/dL (7-23) Creatinine 0.8 mg/dL (0.7-1.2) Estimat Glomerular Filtration Rate mL/min (>60) Glucose Level 131 mg/dL (74-106) H Calcium Level 9.4 mg/dL (8.6-10.2) Total Bilirubin 0.4 mg/dL (0.0-1.2) Aspartate Amino Transf (AST/SGOT) 16 U/L (5-40) Alanine Aminotransferase (ALT/SGPT) 9 U/L (3-41) Alkaline Phosphatase 76 U/L (40-129) Total Creatine Kinase 58 U/L (38-174) Creatine Kinase MB 2.0 ng/mL (< 6.7) Creatine Kinase MB Relative Index 3.4 Troponin I < 0.30 ng/mL (<=0.30) < 0.30 ng/mL (<=0.30) Pro-B-Type Natriuretic Peptide 345 pg/mL (0-450) Total Protein 6.4 g/dL (6.6-8.7) L Albumin 4.2 g/dL (3.5-5.2) Globulin 2.2 g/dL Albumin/Globulin Ratio 1.9 (1.0-2.7) C-Reactive Protein, Quantitative < 0.3 mg/dL (< 0.5) Triglycerides Level 65 mg/dL (< 150) Cholesterol Level 109 mg/dL (< 200) LDL Cholesterol 32 mg/dL (60-99) L HDL Cholesterol 64 mg/dL (> 60) H Cholesterol/HDL Ratio 1.7 (3.3-4.4) L Thyroid Stimulating Hormone (TSH) 0.948 uIU/mL (0.300-4.500) Height (Feet): 5 Height (Inches): 6.00 Weight (Pounds): 145 Medications Current Medications Medications (Trade) Dose Ordered Sig/Angelito Route PRN Reason Start Time Stop Time Status Last Admin Dose Admin Acetaminophen (Tylenol) 650 mg Q4H PRN ORAL Mild Pain/Temp > 100.5 10/24/16 06:55 11/23/16 06:54 10/24/16 07:01 Al Hydroxide/Mg Hydroxide (Mylanta) 30 ml ONCE ONCE ORAL 10/24/16 13:00 10/24/16 13:01 Albuterol/ Ipratropium (DuoNeb 0.5-3(2.5)mg/3ml) 3 ml Q4H PRN HHN Shortness of Breath 10/23/16 22:00 10/28/16 21:59 Aspirin (ASA) 81 mg DAILY ORAL 10/24/16 12:00 11/23/16 11:59 Brimonidine Tartrate (Alphagan) 1 drop TID BOTH EYES 10/24/16 09:00 11/23/16 08:59 10/24/16 09:44 Carbidopa/Levodopa (Sinemet 25/100) 1 ea THREE TIMES A DAY ORAL 10/24/16 09:00 11/23/16 08:59 10/24/16 09:45 Diltiazem HCl (Cardizem) 10 mg EVERY HOUR PRN IV heart rate more than 120, 10/23/16 22:00 11/22/16 21:59 Donepezil HCl (Aricept) 5 mg DAILY ORAL 10/24/16 09:00 11/23/16 08:59 10/24/16 09:45 Enalaprilat (Vasotec) 2.5 mg Q6H PRN IV sbp more than 160 10/23/16 22:00 11/22/16 21:59 Heparin Sodium (Porcine) (Heparin 5000 units/ml) 5,000 units EVERY 12 HOURS SUBQ 10/24/16 09:00 11/23/16 08:59 10/24/16 09:47 Hydralazine HCl (Apresoline) 50 mg Q8HR ORAL 10/23/16 23:00 11/22/16 22:59 10/24/16 06:06 Influenza Virus Vaccine (Flu Vaccine) 0.5 ml ONCE ONCE IM 10/24/16 13:00 10/24/16 13:01 Morphine Sulfate (Morphine Sulfate) 2 mg Q4H PRN IVP severe Pain (Pain Scale 7-10) 10/23/16 22:00 10/30/16 21:59 10/24/16 11:20 Nitroglycerin (Ntg) 0.4 mg Every 5 Minutes PRN SL Prn Chest Pain 10/23/16 22:00 11/22/16 21:59 10/24/16 10:57 Ondansetron HCl (Zofran) 4 mg Q6H PRN IVP Nausea & Vomiting 10/23/16 22:00 11/22/16 21:59 10/24/16 11:25 Pantoprazole (Protonix) 40 mg DAILY ORAL 10/24/16 09:00 11/23/16 08:59 10/24/16 09:45 Pneumococcal Polyvalent Vaccine (Pneumovax) 0.5 ml ONCE ONCE IM 10/24/16 13:00 10/24/16 13:01 Polyethylene Glycol (Miralax) 17 gm DAILYPRN PRN ORAL Constipation 10/23/16 22:00 11/22/16 21:59 Tamsulosin HCl (Flomax) 0.4 mg DAILY ORAL 10/24/16 09:00 11/23/16 08:59 10/24/16 09:45 Temazepam (Restoril) 15 mg HSPRN PRN ORAL Insomnia 10/23/16 22:00 10/30/16 21:59 Assessment/Plan Status: stable, progressing Assessment/Plan Assessment Chest pain Hx Parkinsons disease History of Heart disease HTN Plan Cardiology consultation requested O2 therapy Morphine as needed for chest pain Nitroglycine PRN chest pain ASA Cardiac workup initiated WILFRED RAY Oct 24, 2016 12:51
[2016-10-24] MEDS ORDERED: Pneumococcal Vaccine 25mcg/0.5ml IM ONE (13:00)
[2016-10-24] MEDS ORDERED: Influenza Virus Vaccine 0.5ml IM ONE (13:00)
[2016-10-24] MEDS: Aspirin Baby 81mg ORAL SCH (13:17)
--- NOTE | 2016-10-24 15:38 | Consultation ---
Consult Note Consult Note Cardiology for Dr Harp Full note dictated #[id number] AUGUSTINE MARQUEZ Oct 24, 2016 15:38
--- NOTE | 2016-10-24 19:44 | Cardiology Report ---
APPROVED REPORT EKG Measurement Heart [id number] Normal sinus rhythm with first degree AV block Left bundle branch block Abnormal ECG
[2016-10-24] MEDS: Metoprolol Tartrate 12.5mg TAB ORAL SCH (21:43)
[2016-10-24 22:13] LABS: TROPONIN I < 0.30 ng/mL (<=0.30)
[2016-10-25 00:28] VITALS: BP 141/69
[2016-10-25 04:17] VITALS: BP 151/69
[2016-10-25] MEDS: HydrALAZINE 50mg tab ORAL SCH ×2 (06:26→13:53)
[2016-10-25 08:13] VITALS: BP 143/68
[2016-10-25] MEDS ORDERED: Imdur 30mg tab ORAL SCH (09:00)
[2016-10-25] MEDS: Tamsulosin 0.4mg cap ORAL SCH (09:57)
[2016-10-25] MEDS: Sinemet 25/100 tab ORAL SCH ×2 (09:58→13:53)
[2016-10-25] MEDS: Aspirin Baby 81mg ORAL SCH (09:58)
[2016-10-25] MEDS: Donepezil 5mg Tab ORAL SCH (09:58)
[2016-10-25] MEDS: Metoprolol Tartrate 12.5mg TAB ORAL SCH (10:03)
[2016-10-25] MEDS: Brimonidine 0.2% Opth Sol BOTH EYES SCH ×2 (10:04→13:53)
[2016-10-25] MEDS: Heparin 5000 units/ml inj SUBQ SCH (10:05)
[2016-10-25 11:34] VITALS: BP 121/60
--- NOTE | 2016-10-25 12:42 | Pulmonology Progress Note ---
Assessment/Plan Problems: (1) Chest pain (2) Parkinson disease (3) Pacemaker (4) Costochondritis (5) GERD (gastroesophageal reflux disease) (6) ACS (acute coronary syndrome) (7) Hx of CABG (8) [facility] resident Assessment/Plan no episode of chest pain acute [place] ruled out for stress testing as outpatient. Subjective ROS Limited/Unobtainable: No Interval Events: d/w dr Harp, pt will have stress testing by his primary Cardiology HEENT: Repors: no symptoms Respiratory: Reports: no symptoms Cardiovascular: Reports: no symptoms Gastrointestinal/Abdominal: Reports: no symptoms Allergies: Coded Allergies: No Known Allergies (Verified , 11/07/06) Objective Last 24 Hour Vital Signs Date Time Temp Pulse Resp B/P Pulse Ox O2 Delivery O2 Flow Rate FiO2 10/25/16 11:34 97.7 64 20 121/60 94 Room Air 10/25/16 10:03 143/68 10/25/16 10:03 65 143/68 10/25/16 08:13 97.5 81 20 143/68 95 Room Air 10/25/16 07:16 50 16 Room Air 10/25/16 06:26 150/65 10/25/16 04:17 98.7 59 19 151/69 97 Room Air 10/25/16 04:00 61 10/25/16 00:28 97.9 58 20 141/69 94 Room Air 10/25/16 00:00 54 10/24/16 21:43 60 165/66 10/24/16 21:43 165/66 10/24/16 21:00 97.0 60 16 165/66 97 Room Air 10/24/16 20:00 53 10/24/16 20:00 97.9 56 18 143/85 95 Room Air 10/24/16 16:00 97.7 54 16 133/60 100 Room Air 10/24/16 16:00 51 10/24/16 13:48 141/61 Intake and Output 10/24/16 10/25/16 19:00 07:00 Intake Total 450 ml Balance 450 ml Intake Oral 450 ml # Voids 1 4 General Appearance: WD/WN HEENT: normocephalic, atraumatic Respiratory/Chest: chest wall non-tender, lungs clear Cardiovascular: normal peripheral pulses, normal rate Abdomen: normal bowel sounds, soft, non tender Genitourinary: normal external genitalia Extremities: no cyanosis Skin: no rash 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 Complete Laboratory Tests 10/24/16 21:50: Troponin I < 0.30 Current Medications Medications (Trade) Dose Ordered Sig/Angelito Route PRN Reason Start Time Stop Time Status Last Admin Dose Admin Acetaminophen (Tylenol) 650 mg Q4H PRN ORAL Mild Pain/Temp > 100.5 10/24/16 06:55 11/23/16 06:54 10/24/16 07:01 Albuterol/ Ipratropium (DuoNeb 0.5-3(2.5)mg/3ml) 3 ml Q4H PRN HHN Shortness of Breath 10/23/16 22:00 10/28/16 21:59 Aspirin (ASA) 81 mg DAILY ORAL 10/24/16 12:00 11/23/16 11:59 10/25/16 09:58 Brimonidine Tartrate (Alphagan) 1 drop TID BOTH EYES 10/24/16 09:00 11/23/16 08:59 10/25/16 10:04 Carbidopa/Levodopa (Sinemet 25/100) 1 ea THREE TIMES A DAY ORAL 10/24/16 09:00 11/23/16 08:59 10/25/16 09:58 Diltiazem HCl (Cardizem) 10 mg EVERY HOUR PRN IV heart rate more than 120, 10/23/16 22:00 11/22/16 21:59 Donepezil HCl (Aricept) 5 mg DAILY ORAL 10/24/16 09:00 11/23/16 08:59 10/25/16 09:58 Enalaprilat (Vasotec) 2.5 mg Q6H PRN IV sbp more than 160 10/23/16 22:00 11/22/16 21:59 Heparin Sodium (Porcine) (Heparin 5000 units/ml) 5,000 units EVERY 12 HOURS SUBQ 10/24/16 09:00 11/23/16 08:59 10/25/16 10:05 Hydralazine HCl (Apresoline) 50 mg Q8HR ORAL 10/23/16 23:00 11/22/16 22:59 10/25/16 06:26 Isosorbide Mononitrate (Imdur) 30 mg DAILY ORAL 10/25/16 09:00 11/24/16 08:59 10/25/16 10:03 Metoprolol Tartrate (Lopressor) 12.5 mg Q12HR ORAL 10/24/16 21:00 11/23/16 20:59 10/25/16 10:03 Morphine Sulfate (Morphine Sulfate) 2 mg Q4H PRN IVP severe Pain (Pain Scale 7-10) 10/23/16 22:00 10/30/16 21:59 10/24/16 11:20 Nitroglycerin (Ntg) 0.4 mg Every 5 Minutes PRN SL Prn Chest Pain 10/23/16 22:00 11/22/16 21:59 10/24/16 10:57 Ondansetron HCl (Zofran) 4 mg Q6H PRN IVP Nausea & Vomiting 10/23/16 22:00 11/22/16 21:59 10/24/16 11:25 Pantoprazole (Protonix) 40 mg DAILY ORAL 10/24/16 09:00 11/23/16 08:59 10/25/16 09:57 Polyethylene Glycol (Miralax) 17 gm DAILYPRN PRN ORAL Constipation 10/23/16 22:00 11/22/16 21:59 Tamsulosin HCl (Flomax) 0.4 mg DAILY ORAL 10/24/16 09:00 11/23/16 08:59 10/25/16 09:57 Temazepam (Restoril) 15 mg HSPRN PRN ORAL Insomnia 10/23/16 22:00 10/30/16 21:59 WILFRED RAY Oct 25, 2016 12:42
[2016-10-25 13:53] VITALS: BP 121/60
[2016-10-25] MEDS ORDERED: NS 275ml ONE (16:19)
--- NOTE | 2016-10-26 15:57 | Diagnostic Imaging Report ---
Indications: 86-year-old male inpatient presents with chest pain, coronary artery disease, prior unspecified cardiac surgery in 1995, hypertension Technique: The examination was supervised by Dr. Harp. Baseline electrocardiogram was recorded. Adenosine was administered the patient intravenously per usual protocol. Continuous electrocardiography, heart rate, blood pressure monitoring performed. SPECT imaging of the left ventricular myocardium was performed in multiple planes with the patient at rest, following intravenous administration of 11.4 mCi 99 M technetium-sestaMIBI. Stress imaging not performed per supervising hiv/aids care nurse. Findings: Comparison: None. Rest images demonstrate left ventricular myocardial perfusion to be intact. No areas of abnormally decreased or absent perfusion are demonstrated. Cinegraphic images not generated for rest imaging. Ejection fraction is not calculated for rest imaging. IMPRESSION: No evidence of resting ischemia or prior infarct.
--- NOTE | 2016-10-27 09:07 | Consultation ---
DATE OF CONSULTATION: This is a Cardiology consult being done as coverage for Dr. Te Harp. REASON FOR CONSULT: Chest pain. HISTORY OF PRESENT ILLNESS: The patient is an 86-year-old [place] man with a history of hypertension, remote history of tobacco use, coronary artery disease, coronary artery bypass graft surgery in 1995 ([facility]) and status post PCI to the left main and proximal left anterior descending in March 2016 ([facility]). At that time, he had a 50% ostial circumflex stenosis, occluded left internal mammary to the left anterior descending and patent saphenous vein graft to the obtuse marginal and right coronary artery. He has a history of Parkinson disease and cognitive dysfunction. He has been residing at [facility]. He was transferred from the facility with complaint of chest pain. He reports development of substernal chest pain, which he states is "heart pain." He was given sublingual nitroglycerin with some improvement in his symptoms and brought to the emergency room. He is currently chest pain free. He was recently hospitalized on 10/10/2016 with similar symptoms. At that time, he ruled out for myocardial infarction and was transferred here at [place] on 10/10/2016 with similar chest pain. During that hospitalization, he ruled out for myocardial infarction and was discharged. His cardiac history is also significant for permanent dual-chamber pacemaker placed for sick sinus syndrome with generator replacement a few years ago. MEDICATIONS: Aspirin 81 mg daily; Alphagan eye drops one drop to both eyes three times daily; Sinemet 25/100 mg, one tablet three times daily; Aricept 5 mg daily; Flomax 0.4 mg daily; Protonix 40 mg daily; subcutaneous heparin 5000 units q.12 h.; hydralazine 50 mg p.o. q.8 h.; DuoNeb nebulizer every four hours p.r.n.; and sublingual nitroglycerin p.r.n. ALLERGIES: No known drug allergies. PAST MEDICAL HISTORY: As noted above. SOCIAL HISTORY: The patient has a remote history of tobacco use, but stopped smoking 25 to 30 years ago. PHYSICAL EXAMINATION: VITAL SIGNS: Blood pressure is 141/61; pulse 66, regular; respirations 20; and afebrile. GENERAL: Alert, elderly appearing white male, in no acute distress. HEENT: Normocephalic and atraumatic. Pupils are equal, round, and reactive to light. Sclerae anicteric. Oral mucosa moist. NECK: Supple. There is no jugular venous distention. No carotid bruits. LUNGS: Clear to auscultation bilaterally. HEART: Regular rate and rhythm. S1 and S2 with no murmurs, rubs, S3, or S4. ABDOMEN: Soft and nontender. No palpable mass. EXTREMITIES: No cyanosis, clubbing, or edema. LABORATORY AND IMAGING DATA: Potassium 4.3 and glucose 131. Troponin less than 0.3, repeat less than 0.3. Natriuretic peptide 345. Cholesterol 109, LDL 32, and HDL 64. Hemoglobin 12, hematocrit 34, white blood count 5600, and platelets 138,000. EKG shows sinus rhythm at a rate of 77 beats per minute with a left bundle-branch block and first-degree AV block with MD interval 220 milliseconds. Chest x-ray, by report, no infiltrates, effusions, or cardiomegaly. ASSESSMENT AND RECOMMENDATIONS: The patient is an 86-year-old man with a history of hypertension, previous tobacco use, coronary artery disease, remote history of coronary artery bypass graft surgery and PCI and stent placement to the left main and left anterior descending last year, also history of sick sinus syndrome with permanent dual-chamber pacemaker placement. He is admitted with chest pain consistent with angina. He is ruling out for myocardial infarction with negative troponin levels. His EKG is not interpretable for ischemia due to left bundle-branch block. I would favor continuing aspirin and would start low-dose beta-moraima with close monitoring on telemetry given his first-degree AV block and left bundle-branch block. I would favor stress myocardial perfusion imaging to determine if he has ischemia, he may need repeat coronary angiography for assessment. Dr. Harp will continue to follow him when he returns on 10/25/2016. Nieves Zamarripa M.D. DR: ISIAH JOB#: [id number] CC:
[2016-10-27] MEDS ORDERED: METOPROLOL TART25 MG ORAL (09:25)
--- NOTE | 2016-10-27 09:32 | Discharge Summary ---
Discharge Summary Hospital Course Date of Admission Oct 23, 2016 at 20:20 Date of Discharge Oct 25, 2016 at 16:20 Admitting Diagnosis ACS FRED Elizabeth is a 86 year old male who was admitted on Oct 23, 2016 at 20:20 for ACS Hospital Course dc summary dictated #[id number] Discharge Medications New Medications: Metoprolol Tartrate* (Metoprolol Tartrate*) 25 Mg Tablet 12.5 MG ORAL EVERY 12 HOURS, #60 TAB Continued Medications: Aspirin* (Aspirin*) 81 Mg Tab.chew 81 MG ORAL DAILY, TAB Brimonidine Tartrate* (Alphagan*) 5 Ml Drops 1 DROP BOTH EYES TID, ML Carbidopa/Levodopa 25-100 Mg* (Sinemet 25-100 Mg Tablet*) 1 Each Tablet 1 TAB ORAL THREE TIMES A DAY, TAB Docusate Sodium* (Docusate Sodium*) 100 Mg Capsule 100 MG ORAL TWICE A DAY, CAP Donepezil Hcl* (Aricept*) 5 Mg Tablet 5 MG ORAL DAILY, TAB Hydralazine Hcl* (Hydralazine Hcl*) 100 Mg Tablet 100 MG ORAL BID, TAB Pantoprazole* (Protonix*) 40 Mg Tablet.dr 40 MG ORAL DAILY, TAB Rosuvastatin Calcium* (Crestor*) 20 Mg Tablet 20 MG ORAL DAILY, TAB Tamsulosin Hcl (Tamsulosin Hcl*) 0.4 Mg Cap.er.24h 0.4 MG ORAL, CAP Ticagrelor* (Brilinta*) 90 Mg Tablet 90 MG PO BID, TAB Travoprost (Travatan Z) 5 Ml Drops 5 ML OP, ML Discharge Discharge Disposition Patient was discharged to [facility] (04) Discharge Diagnoses: Discharge Instructions Discharge Instructions Special Instructions I have been assigned to complete a D/C Summary on this account. I was not involved in the patient management Shabnam Bishop NP (Vanchtein) Oct 27, 2016 09:32
--- NOTE | 2016-10-28 05:38 | Discharge Summary 2 SIG ---
DATE OF ADMISSION: 10/23/2016 DATE OF DISCHARGE: 10/25/2016 REASON FOR ADMISSION: 86-year-old male presented to the emergency department by ambulance [facility] with a complaint of midsternal nonradiating chest pain for two days prior to arrival .associated with position changes. He denied any exertional dyspnea. No fever. No chills. The patient has a history of CABG with percutaneous coronary intervention and stent placement last year to left main and left anterior descending artery . Aspirin and nitroglycerin were given in the emergency room prior to transfer to telemetry. Chest x-ray revealed cardiomegaly, but no acute cardiopulmonary disease. ADMITTING DIAGNOSES: 1. Chest pain, rule out acute coronary syndrome. 2. History of coronary artery bypass graft with percutaneous coronary intervention and stent placement. 3. Hypertension. 4. Left bundle-branch block. HOSPITAL STAY: The patient admitted to telemetry floor. The EKG revealed left bundle-branch block with normal sinus rhythm first-degree AV block. Cardiology consult requested. Troponin x3 were negative. However, EKG was not interpretable in terms of ischemia secondary to left bundle-branch block. Cardiology recommended stress test. Myocardial perfusion stress test subsequently was performed, which revealed no evidence of ischemia. The patient also with history of sick sinus syndrome and has a permanent pacemaker. Continued to be in normal sinus rhythm with left bundle-branch block on the telemetry. Aspirin and continued. The patient started on low dose of beta-moraima as per cardio recommendations. Per cardiac recommendations , if chest pain continued, then patient may need to repeat cardiac angiogram but that could be arranged as outpatient. At the time of discharge, the patient was chest pain free. No shortness of breath. No dizziness. No palpitation. Chest pain likely secondary to costochondritis ( since it changed with position and somewhat reproducible upon palpation.) Blood pressure was managed with hydralazine and was stable. The patient has a history of Parkinson disease. Sinemet continued. Bowel regimen instituted. DVT prophylaxis provided. DISCHARGE MEDICATIONS: See medication reconciliation list. DISCHARGE DIAGNOSES: 1. Chest pain likely secondary to costochondritis 2. Costochondritis. 3. History of coronary artery bypass graft with percutaneous coronary intervention and stent placement last year. 4. Left bundle-branch block. 5. History of sick sinus syndrome. 6. Pacemaker. 7. Parkinson disease. 8. Hypertension. Brooke Douglas M.D. I have been assigned to dictate discharge summary on this account and I was not involved in the patient's management. Shabnam Bishop (Vanchtein) NClaudia DR: Jairo JOB#: [id number] CC: AIXA
== END 2016-10-25 16:20 | DRG 206 ==
LOC: EDBD 19:52 → EMR 20:18 → 2E 20:20 → EDBEDREQ 20:34
DX: M94.0 Chondrocostal junction syndrome [Tietze] (principal); G20 Parkinson's disease; I11.9 Hypertensive heart disease without heart failure; Z95.1 Presence of aortocoronary bypass graft; K21.9 Gastro-esophageal reflux disease without esophagitis; I25.10 Atherosclerotic heart disease of native coronary artery without angina pectoris; Z23 Encounter for immunization; F02.80 Dementia in other diseases classified elsewhere, unspecified severity, without behavioral disturbance, psychotic disturbance, mood disturbance, and anxiety; Z87.891 Personal history of nicotine dependence; I44.0 Atrioventricular block, first degree; I44.7 Left bundle-branch block, unspecified; Z79.82 Long term (current) use of aspirin; Z95.0 Presence of cardiac pacemaker
CPT/HCPCS: 36415; 71010; 78452; 80053; 80061; 82550; 82553; 83880; 84443; 84484; 85025; 85610; 85730; 86140; 87081; 90732; 93005; 94664; J2405; Q2036